=== PATIENT | male | born 1985 | race African-American/Black ===

== ENCOUNTER 2025-03-27 07:20 | Emergency (ER) | payer OTHER ==
[~2025-03-27] VITALS: Ht 175.3 cm; Wt 83.9 kg
[2025-03-27 07:37] VITALS: BP 140/87; TEMP 98.4; O2SAT 98
[2025-03-27] MEDS ORDERED: CARB15DR12 EACH EAR (07:51)
== END 2025-03-27 08:04 | disposition home or self-care (01) ==
LOC: ER 07:20
DX: H61.22 Impacted cerumen, left ear (principal)